=== PATIENT | male | born 1985 | race Caucasian/White ===

== ENCOUNTER 2017-07-29 00:57 | Emergency (ER) | payer SELFPAY ==
[~2017-07-29] VITALS: Ht 172.7 cm; Wt 95.5 kg
[2017-07-29 01:05] VITALS: BP 122/70; PULSE 69; RESP 18; TEMP 99.1; O2SAT 99
[2017-07-29] MEDS ORDERED: SODIUM CHLOR 0.9% 1000 ML INJ 1,000 ML IV ONE (01:21)
[2017-07-29 01:27] VITALS: O2SAT 99
[2017-07-29] MEDS ORDERED: ONDANSETRON HCL 4 MG/2 ML VIAL IV PUSH ONE (01:30)
[2017-07-29 01:47] LABS: AUTOMATED NEUTROPHIL # 4.5 TH/MM3 (1.8-7.7); BASOPHIL % 0.5 % (0.0-2.0); EOSINOPHIL % 0.2 % (0.0-4.0); HEMATOCRIT 47.4 % (39.0-51.0); HEMOGLOBIN 15.9 GM/DL (13.0-17.0); LYMPH % 14.4 % (9.0-44.0); LYMPHOCYTE # 0.8 TH/MM3 (1.0-4.8); MEAN CELL VOLUME 85.7 FL (80.0-100.0); MEAN CORPUSCULAR HEMOGLOBIN 28.8 PG (27.0-34.0); MEAN CORPUSCULAR HGB CONC 33.6 % (32.0-36.0); MEAN PLATELET VOLUME 8.7 FL (7.0-11.0); MONO % 9.1 % (0.0-8.0); MONOCYTE # 0.5 TH/MM3 (0-0.9); NEUT % 75.8 % (16.0-70.0); PLATELET COUNT 122 TH/MM3 (150-450); RED BLOOD COUNT 5.53 MIL/MM3 (4.50-5.90); WHITE BLOOD COUNT 5.8 TH/MM3 (4.0-11.0)
--- NOTE | 2017-07-29 01:59 | RADRPT ---
EXAM DATE/TIME: 07/29/2017 01:37 [place] COMPARISON: No previous studies available for comparison. INDICATIONS : Vomiting. MEDICAL HISTORY : None. SURGICAL HISTORY : Hernia repair. ENCOUNTER: Initial ACUITY: 2 days PAIN SCORE: 2/10 LOCATION: Bilateral chest FINDINGS: A single view of the chest demonstrates the lungs to be symmetrically aerated without evidence of mas s, infiltrate or effusion. The cardiomediastinal contours are unremarkable. Osseous structures are intact. CONCLUSION: No acute disease. Tremayne Hodges MD on July 29, 2017 at 1:56 Board Certified Radiologist. This report was verified electronically.
[2017-07-29 02:12] LABS: ALBUMIN 3.7 GM/DL (3.4-5.0); ALKALINE PHOSPHATASE 73 U/L (45-117); ALT (GPT) 58 U/L (12-78); AST (GOT) 45 U/L (15-37); BICARBONATE 22.6 MEQ/L (21.0-32.0); BLOOD UREA NITROGEN 17 MG/DL (7-18); CALCIUM 8.8 MG/DL (8.5-10.1); CHLORIDE 105 MEQ/L (98-107); GLOMERULAR FILTRATION RATE 70 ML/MIN (>89); GLUCOSE,RANDOM 99 MG/DL (74-106); SODIUM (NA) 137 MEQ/L (136-145); TOTAL BILIRUBIN ADULT 0.5 MG/DL (0.2-1.0); TOTAL PROTEIN 7.8 GM/DL (6.4-8.2)
[2017-07-29] MEDS ORDERED: POTASSIUM CHLOR 10 MEQ PREMIX 100 ML IV ONE (02:15)
[2017-07-29] MEDS ORDERED: POTASSIUM CHLORIDE 20 MEQ CONTROLLED RELEASE TAB PO ONE ×2 (02:15→06:15)
[2017-07-29 02:26] LABS: MAGNESIUM 2.1 MG/DL (1.5-2.5)
[2017-07-29 02:46] VITALS: BP 124/60; PULSE 68; RESP 18; O2SAT 99
[2017-07-29 03:05] LABS: BLOOD, URINE NEG (NEG); GLUCOSE,URINE NEG (NEG); KETONE, URINE 40 mg/dL (NEG); NITRITE,URINE NEG (NEG); PH, URINE 6.5 (5.0-8.5); URINE LEUKOCYTE ESTERASE NEG (NEG)
[2017-07-29 03:06] LABS: BILIRUBIN, URINE NEG (NEG); URINE COLOR AMBER (YELLW/STRAW)
[2017-07-29 03:11] LABS: RBC, URINE 0-2 /hpf (0-3); WBC, URINE 0-2 /hpf (0-5)
[2017-07-29 04:03] VITALS: BP 115/62; PULSE 62; RESP 16; O2SAT 99
--- NOTE | 2017-07-29 04:53 | PD ---
HPI Chief Complaint: Cold / Flu Symptoms Time Seen by Provider: 01:21 Travel History International Travel<30 days: No Contact w/Intl Traveler<30days: No Traveled to known affect area: No History of Present Illness HPI 32-year-old male presents to the emergency department from home by EMS transport for complaint of generalized weakness fever myalgias arthralgias nausea vomiting and near syncope. Patient states that he has been sick for 3-4 days. Other family members have had respiratory illness but he has had respiratory illness as well as GI symptoms. Patient's had nausea vomiting abdominal cramping as well as diarrhea. Patient states he is only been able to tolerate Gatorade and has been vomiting as well. Patient states he tried to tolerate solid foods but was unsuccessful. Due to his generalized weakness and feeling as if he might pass out he decided to come to the emergency room at this time. is at home with children. Patient has history of anxiety as well as history of prothrombin gene mutation with prior remote history of DVT and PE on no anticoagulation therapy at this time. Patient reports he takes no prescription medications but does self medicate reportedly with marijuana. PFSH Past Medical History Narrative Medical Prothrombin gene mutation, DVT, PE, anxiety; no tobacco use; nursing notes reviewed Medical other: Yes (Prothombin Type 2 mutation ) Tetanus Vaccination: > 5 Years Influenza Vaccination: No Social History Alcohol Use: No Tobacco Use: No Substance Use: Yes (Marijuana/Daily 07/29/17) Allergies-Medications (Allergen,Severity, Reaction): Coded Allergies: No Known Drug Allergies (Verified Allergy, Unknown, 07/29/17) Reported Meds & Prescriptions Reported Meds & Active Scripts Active No Active Prescriptions or Reported Medications Review of Systems Except as stated in HPI: all other systems reviewed are Neg General / Constitutional: Positive: Fever, Chills HENT: Positive: Congestion Cardiovascular: Positive: Diaphoresis, No: Chest Pain or Discomfort, Syncope Respiratory: No: Shortness of Breath Gastrointestinal: Positive: Nausea, Vomiting, Diarrhea, Abdominal Pain Genitourinary: No: Dysuria, Flank Pain Musculoskeletal: Positive: Myalgias, Arthralgias Skin: No Rash Neurologic: Positive: Weakness, Dizziness Psychiatric: Positive: Anxiety Hematologic/Lymphatic: No: Lymph Node Enlargement Physical Exam Narrative GENERAL: Well-developed well-nourished male no acute distress or respiratory distress SKIN: Warm and dry. HEAD: Normocephalic. EYES: No scleral icterus. No injection or drainage. NECK: Supple, trachea midline. No JVD or lymphadenopathy. CARDIOVASCULAR: Regular rate and rhythm without murmurs, gallops, or rubs. RESPIRATORY: Breath sounds equal bilaterally. No accessory muscle use. GASTROINTESTINAL: Abdomen soft, non-tender, nondistended. MUSCULOSKELETAL: No cyanosis, or edema. BACK: Nontender without obvious deformity. No CVA tenderness. Data Data Last Documented VS Vital Signs Date Time Temp Pulse Resp B/P (MAP) Pulse Ox O2 Delivery O2 Flow Rate FiO2 07/29/17 04:03 62 16 115/62 (79) 99 Room Air 07/29/17 01:05 99.1 Orders Orders Complete Blood Count With Diff (07/29/17 01:21) Comprehensive Metabolic Panel (07/29/17 01:21) Urinalysis - C+S If Indicated (07/29/17 01:21) Lipase (07/29/17 01:21) Iv Access Insert/Monitor (07/29/17 01:21) Ecg Monitoring (07/29/17 01:21) Oximetry (07/29/17 01:21) Ondansetron Inj (Zofran Inj) (07/29/17 01:30) Sodium Chlor 0.9% 1000 Ml Inj (Ns 1000 M (07/29/17 01:21) Chest, Single Ap (07/29/17 01:21) Potassium Chloride (Kcl) (07/29/17 02:15) Potassium Chlor 10 Meq Premix (Kcl 10 Me (07/29/17 02:15) Magnesium (Mg) (07/29/17 01:39) Electrocardiogram (07/29/17 ) Influenzae A/B Antigen (07/29/17 05:22) Potassium, Serum (K) (07/29/17 05:22) Group A Rapid Strep Screen (07/29/17 05:23) Strep Culture (Group A) (07/29/17 05:30) Ed Discharge Order (07/29/17 06:04) Labs Laboratory Tests Test 07/29/17 01:39 07/29/17 02:55 07/29/17 05:30 White Blood Count 5.8 TH/MM3 Red Blood Count 5.53 MIL/MM3 Hemoglobin 15.9 GM/DL Hematocrit 47.4 % Mean Corpuscular Volume 85.7 FL Mean Corpuscular Hemoglobin 28.8 PG Mean Corpuscular Hemoglobin Concent 33.6 % Red Cell Distribution Width 12.0 % Platelet Count 122 TH/MM3 Mean Platelet Volume 8.7 FL Neutrophils (%) (Auto) 75.8 % Lymphocytes (%) (Auto) 14.4 % Monocytes (%) (Auto) 9.1 % Eosinophils (%) (Auto) 0.2 % Basophils (%) (Auto) 0.5 % Neutrophils # (Auto) 4.5 TH/MM3 Lymphocytes # (Auto) 0.8 TH/MM3 Monocytes # (Auto) 0.5 TH/MM3 Eosinophils # (Auto) 0.0 TH/MM3 Basophils # (Auto) 0.0 TH/MM3 CBC Comment DIFF FINAL Differential Comment Blood Urea Nitrogen 17 MG/DL Creatinine 1.20 MG/DL Random Glucose 99 MG/DL Total Protein 7.8 GM/DL Albumin 3.7 GM/DL Calcium Level 8.8 MG/DL Magnesium Level 2.1 MG/DL Alkaline Phosphatase 73 U/L Aspartate Amino Transf (AST/SGOT) 45 U/L Alanine Aminotransferase (ALT/SGPT) 58 U/L Total Bilirubin 0.5 MG/DL Sodium Level 137 MEQ/L Potassium Level 2.8 MEQ/L 3.3 MEQ/L Chloride Level 105 MEQ/L Carbon Dioxide Level 22.6 MEQ/L Anion Gap 9 MEQ/L Estimat Glomerular Filtration Rate 70 ML/MIN Lipase 180 U/L Urine Color ROLAND Urine Turbidity CLEAR Urine pH 6.5 Urine Specific [place] 1.025 Urine Protein 100 mg/dL Urine Glucose (UA) NEG mg/dL Urine Ketones 40 mg/dL Urine Occult Blood NEG Urine Nitrite NEG Urine Bilirubin NEG Urine Urobilinogen 1.0 MG/DL Urine Leukocyte Esterase NEG Urine RBC 0-2 /hpf Urine WBC 0-2 /hpf Urine Squamous Epithelial Cells 6-8 /hpf Urine Bacteria NONE /hpf Microscopic Urinalysis Comment CULT NOT INDICATED MDM Medical Decision Making Medical Screen Exam Complete: Yes Emergency Medical Condition: Yes Medical Record Reviewed: Yes Interpretation(s) CBC & BMP Diagram 07/29/17 01:39 Total Protein 7.8, Albumin 3.7, Calcium Level 8.8, Magnesium Level 2.1, Alkaline Phosphatase 73, Aspartate Amino Transf (AST/SGOT) 45 H, Alanine Aminotransferase (ALT/SGPT) 58, Total Bilirubin 0.5 Vital Signs Date Time Temp Pulse Resp B/P (MAP) Pulse Ox O2 Delivery O2 Flow Rate FiO2 07/29/17 04:03 62 16 115/62 (79) 99 Room Air 07/29/17 02:46 68 18 124/60 (81) 99 Room Air 07/29/17 01:27 99 Room Air 07/29/17 01:17 69 18 99 Room Air 07/29/17 01:05 99.1 69 18 122/70 (87) 99 cxr: FINDINGS: A single view of the chest demonstrates the lungs to be symmetrically aerated without evidence of mass, infiltrate or effusion. The cardiomediastinal contours are unremarkable. Osseous structures are intact. CONCLUSION: No acute disease. Tremayne Hodges MD on July 29, 2017 at 1:56 Board Certified Radiologist. This report was verified electronically. EKG normal sinus rhythm rate [address] elevation injury pattern change nonspecific T-wave abnormality Repeat potassium 3.3 Influenza A/B antigen: Negative Rapid strep antigen: Negative Differential Diagnosis Gastroenteritis, electrolyte disturbance, dehydration, viral syndrome, UTI, diverticulitis, appendicitis, colitis, pancreatitis Narrative Course Patient placed on school lunch monitor with continuous pulse oximetry IV access obtained specimens collected and sent for resulting patient administered Zofran 4 mg IV along with 1 L normal saline CBC is automated differential values grossly normal range; chemistries remarkable for hypokalemia potassium 2.8 Patient given oral and IV potassium replacement along with IV fluids Sodium magnesium and calcium values on normal range EKG sinus rhythm no acute ST elevation or injury pattern change in her U waves Patient feeling much improved no further muscle cramping or generalized weakness no nausea no vomiting patient denies any pain at this time; patient tolerating oral hydration well drinking Gatorade and eating a popsicle. At 5:15 AM patient ambulatory to the bathroom without assistance. Patient states he feels much better but is very worried that he has the flu and requests to be tested specifically for influenza as he has young children at home and they are starting to develop similar symptoms that he again was on Sunday and Sunday with sore throat and cough productive of green sputum with myalgias and arthralgias and fever and states that those symptoms have been replaced with his GI symptoms but is still very concerned and requests again for an influenza test. Patient is aware that influenza and rapid strep antigen tests are negative and potassium has responded well to potassium replacement in the emergency department; patient is stable for outpatient management. Diagnosis Primary Impression: Gastroenteritis Additional Impression: Hypokalemia Referrals: [facility] call for appointment Patient Instructions: General Instructions Additional Instructions: Increase fluid hydration; follow clear liquid diet for next 12-24 hours advance to bland/brat diet and regular diet avoiding fried and fatty foods Take Zofran as prescribed as needed for nausea and/or vomiting Add potassium containing foods and beverages to dietary intake Follow-up with Clinic or [facility] call for appointment and for GI referral Monitor temperature every 4 hours with thermometry take as needed acetaminophen/ Tylenol for fever 100.4F or greater; avoid ibuprofen/Advil/Motrin Take Zantac 150 twice daily for 14 days for history of peptic ulcer disease Take Phazyme [id number] per package directions as needed for bloating and gaseous GI symptoms Return to the emergency department for any concerns or change in condition Med/Other Pt SpecificInfo: Prescription(s) given Scripts Ondansetron Odt (Zofran Odt) 4 Mg Tab 4 MG SL Q6HR Y for Nausea/Vomiting, #7 TAB 0 Refills Prov: Cassi Lerma MD 07/29/17 Disposition: 01 DISCHARGE HOME Condition: Stable Cassi Lerma MD Jul 29, 2017 04:53
[2017-07-29] MEDS ORDERED: ZOFR4TAB3 SL (06:06)
[2017-07-29 06:16] VITALS: BP 127/69
--- NOTE | 2017-07-29 12:28 | EKG ---
Date Performed: 07/29/2017 Time Performed: 05:09:40 PTAGE: 32 years EKG: Sinus rhythm Normal EKG NO PREVIOUS TRACING DOCTOR: Jorge Gardner Interpretating Date/Time 07/29/2017 12:27:05
== END 2017-07-29 06:34 | disposition home or self-care (01) ==
LOC: PHED 00:57
DX: K52.9 Noninfective gastroenteritis and colitis, unspecified (principal); E87.6 Hypokalemia; M79.1 Myalgia; R53.1 Weakness; R09.81 Nasal congestion; Z86.718 Personal history of other venous thrombosis and embolism; Z86.711 Personal history of pulmonary embolism
CPT/HCPCS: 71045; 80053; 81001; 83690; 83735; 84132; 85025; 87081; 87804; 87880; 93005; 96361; 96374; 99285; J2405; J3480; J7030